=== PATIENT | male | born 1935 | race Caucasian/White ===

== ENCOUNTER 2018-08-12 10:34 | Inpatient (IN) | payer MEDICARE ==
[2018-08-12] MEDS ORDERED: METHYLPREDNISOLONE INJ 125 MG/2 ML SDV IV ONE (11:00)
[2018-08-12] MEDS ORDERED: IPRATROPIUM/ALBUTEROL 0.5-2.5 MG/3 ML AMPUL NEB ONE ×2 (11:00→16:24)
--- NOTE | 2018-08-12 11:06 | ER Document Report ---
ED Medical Screen (RME) - General Chief Complaint: Shortness Of Breath Stated Complaint: BREATHING ISSUES Time Seen by Provider: 08/12/18 10:58 Notes: Patient says he has chronic dyspnea and difficulty breathing, but it has worsened in the past week. Has had some cough with congestion and phlegm production. Aches in the front of his chest. He has ANORO inhaler and a rescue inhaler of albuterol. Does not have home nebs, oxygen, and is not on steroids. He has COPD, but has not smoked for about 7 years. Not running any fevers. O2 sat 92%. Air exchange somewhat tight and appears to be slightly short of breath. Few scattered wheezes bilaterally. TRAVEL OUTSIDE OF THE [place] IN LAST 30 DAYS: No - Related Data Allergies/Adverse Reactions: No Known Allergies Allergy (Unverified 08/12/18 10:36) Past Medical History - Social History Chew tobacco use (# tins/day): No Frequency of alcohol use: Occasional Drug Abuse: None Pulmonary Medical History: Reports: Hx COPD Renal/ Medical History: Denies: Hx Peritoneal Dialysis Past Surgical History: Reports: Hx Orthopedic Surgery - left arm, Hx Tonsillectomy Physical Exam - Vital signs Vitals: Temp Pulse Resp BP Pulse Ox 97.8 F 100 22 H 112/71 92 08/12/18 10:44 08/12/18 10:44 08/12/18 10:44 08/12/18 10:44 08/12/18 10:44 Course - Vital Signs Vital signs: Temp Pulse Resp BP Pulse Ox 97.8 F 100 22 H 112/71 92 08/12/18 10:44 08/12/18 10:44 08/12/18 10:44 08/12/18 10:44 08/12/18 10:44 Doctor's Discharge - Discharge Referrals: CHARMAINE MILLER MD [Primary Care Provider] - Follow up as needed
[2018-08-12] MEDS ORDERED: MAGNESIUM SULFATE/D5W 1 GM/100 ML RTUPB IV ONE (11:27)
--- NOTE | 2018-08-12 11:44 | RADIOLOGY REPORT (SQ) ---
EXAM DESCRIPTION: CHEST 2 VIEWS COMPLETED DATE/TIME: 08/12/2018 11:34 am REASON FOR STUDY: COPD with shortness of breath and difficulty breat COMPARISON: None. NUMBER OF VIEWS: Two view. TECHNIQUE: Frontal and lateral radiographic views of the chest acquired. LIMITATIONS: Overlapping breast tissue. FINDINGS: LUNGS AND PLEURA: No obvious pneumonia. No pleural effusion. Attenuated blood vessels and flattened javi-diaphragms. MEDIASTINUM AND HILAR STRUCTURES: No masses. No contour abnormalities. HEART AND VASCULAR STRUCTURES: Heart normal in size and contour. No evidence for failure. BONES: No acute findings. HARDWARE: None in the chest. OTHER: No other significant finding. IMPRESSION: COPD. NO ACUTE RADIOGRAPHIC FINDING IN THE CHEST. TECHNICAL DOCUMENTATION: JOB ID: [id number] [employer]- All Rights Reserved Reading location - IP/workstation name: [email or web address]
[2018-08-12] MEDS ORDERED: ALBUTEROL SULFATE 0.083% NEB 2.5 MG/3 ML AMPUL NEB ONE (12:37)
[2018-08-12 13:00] LABS: ABSOLUTE BASOPHILS # (AUTO) 0.1 10^3/uL (0.0-0.2); ABSOLUTE EOSINOPHILS # (AUTO) 0.2 10^3/uL (0.0-0.6); ABSOLUTE LYMPHOCYTES (AUTO) 2.4 10^3/uL (0.5-4.7); ABSOLUTE MONOCYTES (AUTO) 1.4 10^3/uL (0.1-1.4); ABSOLUTE NEUT (AUTO) 9.3 10^3/uL (1.7-8.2); BASOPHILS % (AUTO) 0.8 % (0-2); EOSINOPHILS % (AUTO) 1.4 % (0-6); HEMATOCRIT 45.6 % (37.9-51.0); HEMOGLOBIN 15.3 g/dL (13.5-17.0); LYMPHOCYTES % (AUTO) 18.2 % (13-45); MEAN CORPUSCULAR HEMOGLOBIN 29.4 pg (27.0-33.4); MEAN CORPUSCULAR HGB CONC 33.5 g/dL (32.0-36.0); MEAN CORPUSCULAR VOLUME 88 fl (80-97); MONOCYTES % (AUTO) 10.2 % (3-13); PLATELET COUNT 242 10^3/uL (150-450); RED BLOOD COUNT 5.19 10^6/uL (4.35-5.55); RED CELL DISTRIBUTION WIDTH 14.3 % (11.5-14.0); SEGMENTED NEUTROPHILS % (AUTO) 69.4 % (42-78); TOTAL CELLS COUNTED % (AUTO) 100 %; WHITE BLOOD COUNT 13.4 10^3/uL (4.0-10.5)
[2018-08-12] MEDS ORDERED: DOXYCYCLINE HYCLATE 100 MG TABLET PO ONE (13:35)
[2018-08-12 13:46] LABS: ALANINE AMINOTRANSFERASE 9 U/L (21-72); ALBUMIN 3.7 g/dL (3.5-5.0); ALKALINE PHOSPHATASE 79 U/L (38-126); ANION GAP 10 (5-19); ASPARTATE AMINO TRANSFERASE 20 U/L (17-59); BILIRUBIN,DIRECT 0.4 mg/dL (0.0-0.4); BILIRUBIN,TOTAL 0.6 mg/dL (0.2-1.3); BLOOD UREA NITROGEN 12 mg/dL (7-20); CALCIUM 8.8 mg/dL (8.4-10.2); CARBON DIOXIDE 26 mmol/L (22-30); CHLORIDE 100 mmol/L (98-107); GLUCOSE 179 mg/dL (75-110); POTASSIUM 4.5 mmol/L (3.6-5.0); SODIUM 135.9 mmol/L (137-145); TOTAL PROTEIN 6.9 g/dL (6.3-8.2)
[2018-08-12] MEDS ORDERED: NORMAL SALINE 500 ML IV ONE (14:00)
[2018-08-12] MEDS ORDERED: PREDNISONE 20 MG TABLET PO ONE (15:26)
[2018-08-12] MEDS ORDERED: ALBUTEROL SULFATE HFA (90 MCG/PUFF) 8 GM MDI (1 MDI/ER DISP) IH ONE (15:27)
--- NOTE | 2018-08-12 15:27 | ER Document Report ---
ED General - General Chief Complaint: Shortness Of Breath Stated Complaint: BREATHING ISSUES Time Seen by Provider: 08/12/18 10:58 TRAVEL OUTSIDE OF THE [place] IN LAST 30 DAYS: No - HPI Patient complains to provider of: Shortness of breath Notes: Patient visiting from [place] has a history of COPD coming in for shortness of breath. Patient states increased cough difficulty and breathing that is exacerbated with exertion is more patient states he was barely able to walk to his bathroom or walk a very short distance. Patient otherwise denies any pain denies any chest pain abdominal pain fever chills nausea vomiting diarrhea patient states scant yellow sputum production. Patient states he stopped smoking approximately 8 years ago. - Related Data Allergies/Adverse Reactions: No Known Allergies Allergy (Unverified 08/12/18 10:36) Past Medical History - Social History Smoking Status: Former Smoker Chew tobacco use (# tins/day): No Frequency of alcohol use: Occasional Drug Abuse: None Family History: Reviewed & Not Pertinent Patient has suicidal ideation: No Patient has homicidal ideation: No Pulmonary Medical History: Reports: Hx COPD Renal/ Medical History: Denies: Hx Peritoneal Dialysis Past Surgical History: Reports: Hx Orthopedic Surgery - left arm, Hx Tonsillectomy Review of Systems - Review of Systems Constitutional: No symptoms reported EENT: No symptoms reported Cardiovascular: No symptoms reported Respiratory: Cough, Short of breath, Sputum Gastrointestinal: No symptoms reported Genitourinary: No symptoms reported Male Genitourinary: No symptoms reported Musculoskeletal: No symptoms reported Skin: No symptoms reported Hematologic/Lymphatic: No symptoms reported Neurological/Psychological: No symptoms reported -: Yes All other systems reviewed and negative Physical Exam - Vital signs Vitals: Temp Pulse Resp BP Pulse Ox 97.8 F 100 22 H 112/71 92 08/12/18 10:44 08/12/18 10:44 08/12/18 10:44 08/12/18 10:44 08/12/18 10:44 Interpretation: Normal - General General appearance: Appears well, Alert - HEENT Head: Normocephalic, Atraumatic Eyes: Normal Pupils: PERRL - Respiratory Respiratory status: No respiratory distress Chest status: Nontender Breath sounds: Rhonchi, Wheezing Chest palpation: Normal - Cardiovascular Rhythm: Regular Heart sounds: Normal auscultation Murmur: No - Abdominal Inspection: Normal Distension: No distension Bowel sounds: Normal Tenderness: Nontender Organomegaly: No organomegaly - Back Back: Normal, Nontender - Extremities General upper extremity: Normal inspection, Nontender, Normal color, Normal ROM, Normal temperature General lower extremity: Normal inspection, Nontender, Normal color, Normal ROM, Normal temperature, Normal weight bearing. No: Noy's sign - Neurological Neuro grossly intact: Yes Cognition: Normal Orientation: AAOx4 Mallard Coma Scale Eye Opening: Spontaneous Crispin Coma Scale Verbal: Oriented Crispin Coma Scale Motor: Obeys Commands Mallard Coma Scale Total: 15 Speech: Normal Motor strength normal: LUE, RUE, LLE, RLE Sensory: Normal - Psychological Associated symptoms: Normal affect, Normal mood - Skin Skin Temperature: Warm Skin Moisture: Dry Skin Color: Normal Course - Re-evaluation Re-evalutation: 08/12/18 16:05 Patient monitored here in the ER. Patient had improvement of the symptoms after breathing treatment steroids. Patient was able to ambulate around the nurses station stating that he felt much better. Patient initial magnesium did return high which is anomalous reading this was repeated showing a magnesium of 2.3. Patient states feeling better states he feels good enough to be discharged home at this time. Patient will be given an albuterol inhaler steroids and doxycycline because of the productive sputum. Patient will be discharged home follow-up with his primary care physician return to ER symptoms worsen. Patient states understanding agrees with this plan - Vital Signs Vital signs: Temp Pulse Resp BP Pulse Ox 97.8 F 100 11 L 109/66 95 08/12/18 10:44 08/12/18 10:44 08/12/18 13:01 08/12/18 13:01 08/12/18 13:01 - Laboratory Result Diagrams: 08/12/18 12:30 08/12/18 13:10 Laboratory results interpreted by me: 08/12/18 08/12/18 08/12/18 12:30 13:10 14:30 WBC 13.4 H RDW 14.3 H Absolute Neutrophils 9.3 H Sodium 135.9 L Glucose 179 H Magnesium 5.1 H* 2.6 H D ALT 9 L Discharge - Discharge Clinical Impression: Bronchitis Condition: Good Disposition: HOME, SELF-CARE Instructions: Bronchitis With Bronchospasm (Wheezing) (OM) Additional Instructions: Your evaluation is consistent with a bronchitis. Please use the inhaler that we gave you here in ER 2 puffs every 4 hours for the next 5 days. Please take steroids as prescribed please take antibiotics as prescribed return to ER symptoms worsen please make sure you drink plenty of fluids to stay well-hydrated. Prescriptions: Doxycycline Hyclate 100 mg PO BID #20 capsule Prednisone [Deltasone 20 mg Tablet] 3 tab PO DAILY 5 Days tablet Referrals: CHARMAINE MILLER MD [EMERITUS] - Follow up as needed
[2018-08-12] MEDS ORDERED: ONDANSETRON HCL INJ/PF 4 MG/2 ML SDV IV PRN (16:43)
[2018-08-12] MEDS ORDERED: ACETAMINOPHEN 325 MG TABLET PO PRN (16:43)
[2018-08-12] MEDS ORDERED: LEVALBUTEROL HCL NEB 1.25 MG/3 ML AMPUL NEB PRN (16:43)
[2018-08-12] MEDS ORDERED: IPRATROPIUM/ALBUTEROL 0.5-2.5 MG/3 ML AMPUL NEB PRN (16:43)
[2018-08-12] MEDS ORDERED: ALBUTEROL SULFATE HFA (90 MCG/PUFF) 8 GM MDI (1 MDI/ER DISP) IH PRN (16:52)
[2018-08-12] MEDS ORDERED: ALBUTEROL SULFATE HFA (90 MCG/PUFF) 200 PUFF/8.5 GM MDI IH PRN (16:58)
--- NOTE | 2018-08-12 17:10 | PDOC H&P ---
History of Present Illness Admission Date/PCP: 08/12/2018 Patient complains of: Shortness of breath and wheezing History of Present Illness: PEPITO PURCELL is a 83 year old male with history of COPD not on home oxygen, prostate cancer and conservative management the emergency room with complaints of shortness of breath for the last 5 days. To the patient shortness of breath associated with wheezing started 5 days ago and symptoms are gradually getting worse today he has increasing difficulty in breathing associated with productive cough whitish yellow sputum and extensive wheezing, so he decided to came to the emergency room for further evaluation. Emergency room initially patient was treated with nebulizer treatments and ER physician decided to discharge him home but he the patient shortly become short of breath and pulse oxes are dropped to 87% on room air. So medical consult was called for admission. Went to talk to the patient patient has difficulty in completing the sentences. He is in moderate to severe distress. But he is able to give a detailed history of his problems. Past Medical History Pulmonary Medical History: Reports: Chronic Obstructive Pulmonary Disease (COPD) Malignancy Medical History: Reports: Other - Prostate cancer Past Surgical History Past Surgical History: Reports: Orthopedic Surgery - left arm, Tonsillectomy, Other - lt Wrist surgery Social History Smoking Status: Former Smoker Frequency of Alcohol Use: Occasional Hx Recreational Drug Use: No Family History Family History: Reviewed & Not Pertinent Family History: Sister with colon cancer. Brother has a history of stroke. Parental Family History Reviewed: Yes Children Family History Reviewed: Yes Sibling(s) Family History Reviewed.: Yes Medication/Allergy Home Medications: Albuterol Sulfate [Ventolin Hfa 8 gm Mdi (1 Mdi/ER Disp)] 1 puff IH Q4H PRN 08/12/18 Doxycycline Hyclate 100 mg PO BID #20 capsule 08/12/18 Prednisone [Deltasone 20 mg Tablet] 3 tab PO DAILY 5 Days tablet 08/12/18 Tamsulosin HCl [Flomax] 1 tab PO DAILY 08/12/18 Umeclidinium Brm/Vilanterol Tr [Anoro Ellipta 62.5-25 Mcg INH] 1 puff IH DAILY 08/12/18 Allergies/Adverse Reactions: No Known Allergies Allergy (Unverified 08/12/18 10:36) Review of Systems Constitutional: PRESENT: other - Complaint of on and off sweating. There is any fever and chills. Eyes: ABSENT: visual disturbances Ears: ABSENT: hearing changes Cardiovascular: ABSENT: chest pain, orthropnea Respiratory: PRESENT: cough, dyspnea, sputum, other - Wheezing. Gastrointestinal: ABSENT: abdominal pain, constipation, diarrhea, hematemesis, hematochezia, nausea, vomiting Neurological: ABSENT: abnormal gait, abnormal speech, confusion, dizziness, focal weakness, syncope Psychiatric: ABSENT: anxiety, depression, homidical ideation, suicidal ideation Physical Exam Vital Signs: Temp Pulse Resp BP Pulse Ox 97.8 F 100 21 H 100/79 88 L 08/12/18 10:44 08/12/18 10:44 08/12/18 16:14 08/12/18 16:14 08/12/18 16:14 Intake & Output 08/11/18 08/12/18 08/13/18 06:59 06:59 06:59 Intake Total 550 Balance 550 Weight 82.3 kg General appearance: PRESENT: other - In moderate distress. Head exam: PRESENT: atraumatic Eye exam: PRESENT: PERRLA Mouth exam: PRESENT: moist Neck exam: ABSENT: carotid bruit, JVD, lymphadenopathy, thyromegaly Respiratory exam: PRESENT: decreased breath sounds, prolonged expiratory phas, tachypnea, wheezes Cardiovascular exam: PRESENT: tachycardia GI/Abdominal exam: PRESENT: normal bowel sounds, soft. ABSENT: distended, guarding, mass, organolmegaly, rebound, tenderness Extremities exam: PRESENT: full ROM. ABSENT: calf tenderness, clubbing, pedal edema Neurological exam: PRESENT: alert, awake, oriented to person, oriented to place, oriented to time, oriented to situation, CN II-XII grossly intact. ABSENT: motor sensory deficit Results Laboratory Results: 08/12/18 12:30 08/12/18 13:10 08/12/18 08/12/18 08/12/18 12:30 12:30 13:10 WBC 13.4 H RBC 5.19 Hgb 15.3 Hct 45.6 MCV 88 MCH 29.4 MCHC 33.5 RDW 14.3 H Plt Count 242 Seg Neutrophils % 69.4 Lymphocytes % 18.2 Monocytes % 10.2 Eosinophils % 1.4 Basophils % 0.8 Absolute Neutrophils 9.3 H Absolute Lymphocytes 2.4 Absolute Monocytes 1.4 Absolute Eosinophils 0.2 Absolute Basophils 0.1 Sodium Cancelled 135.9 L Potassium Cancelled 4.5 Chloride Cancelled 100 Carbon Dioxide Cancelled 26 Anion Gap Cancelled 10 BUN Cancelled 12 Creatinine Cancelled 1.03 Est GFR ( Amer) Cancelled > 60 Est GFR (Non-Af Amer) Cancelled > 60 Glucose Cancelled 179 H Calcium Cancelled 8.8 Magnesium Cancelled 5.1 H* Total Bilirubin Cancelled 0.6 AST Cancelled 20 ALT Cancelled 9 L Alkaline Phosphatase Cancelled 79 Total Protein Cancelled 6.9 Albumin Cancelled 3.7 08/12/18 14:30 WBC RBC Hgb Hct MCV MCH MCHC RDW Plt Count Seg Neutrophils % Lymphocytes % Monocytes % Eosinophils % Basophils % Absolute Neutrophils Absolute Lymphocytes Absolute Monocytes Absolute Eosinophils Absolute Basophils Sodium Potassium Chloride Carbon Dioxide Anion Gap BUN Creatinine Est GFR ( Amer) Est GFR (Non-Af Amer) Glucose Calcium Magnesium 2.6 H D Total Bilirubin AST ALT Alkaline Phosphatase Total Protein Albumin 08/12/18 08/12/18 12:30 13:10 Troponin I Cancelled 0.025 Impressions: Chest X-Ray 08/12/18 10:59 IMPRESSION: COPD. NO ACUTE RADIOGRAPHIC FINDING IN THE CHEST. Assessment & Plan - Diagnosis (1) COPD exacerbation Is this a current diagnosis for this admission?: Yes Plan: 08/12/2018 plan today is to put him in telemetry as an inpatient. Started on IV Solu-Medrol 40 mg every 8 hourly, oxygen 2 L via nasal cannula, BiPAP as needed, Xopenex nebulizations, ipratropium nebulizations, flutter valve therapy. Started on prophylactic antibiotic therapy with Rocephin 1 g IV daily Zithromax 500 mg IV daily. Blood cultures and sputum cultures are requested. (2) Bronchitis Is this a current diagnosis for this admission?: Yes Plan: 08/12/2018 blood cultures and sputum cultures are requested. Started on IV Rocephin 1 g daily and Zithromax 500 mg IV daily. (3) Prostate cancer Is this a current diagnosis for this admission?: Yes Plan: 08/12/2018 patient has history of prostate cancer. According to him he is a conservative management. Never been on radiation or chemotherapy. - Time Time Spent: 50 to 70 Minutes Smoking Cessation Education: 3 to 10 minutes Medications reviewed and adjusted accordingly: Yes Anticipated discharge: Home
[2018-08-12 19:09] LABS: ARTERIAL BLOOD BASE EXCESS -4.5 mmol/L; ARTERIAL BLOOD H2CO3 0.75 mmol/L (1.05-1.35); ARTERIAL BLOOD HCO3 17.4 mmol/L (20-24); ARTERIAL BLOOD O2 SATURATION 95.2 % (94-98); ARTERIAL BLOOD PH 7.46 (7.35-7.45); ARTERIAL BLOOD PO2 69.6 mmHg (80-100); ARTERIAL BLOOD TOTAL CO2 18.2 mmol/L (23-27)
[2018-08-12 19:14] LABS: ARTERIAL BLOOD FIO2 ROOM AIR
[2018-08-12] MEDS: AZITHROMYCIN 500 MG in DEXTROSE 5%-WATER 250 ML IV SCH (19:52)
[2018-08-12] MEDS: CEFTRIAXONE SODIUM 1,000 MG in DEXTROSE 5%-WATER 50 ML IV SCH (23:55)
[2018-08-13 00:01] LABS: URINE METHADONE SCREEN NEGATIVE
[2018-08-13] MEDS: PANTOPRAZOLE SODIUM 40 MG VIAL IV SCH ×3 (00:04→21:41)
[2018-08-13] MEDS: METHYLPREDNISOLONE INJ 40 MG/1 ML SDV IV SCH ×4 (00:05→21:40)
[2018-08-13 00:53] LABS: URINE BARBITURATES SCREEN NEGATIVE; URINE COCAINE SCREEN NEGATIVE; URINE MARIJUANA (THC) SCREEN NEGATIVE; URINE PHENCYCLIDINE SCREEN NEGATIVE
[2018-08-13 00:55] LABS: URINE AMPHETAMINES SCREEN NEGATIVE; URINE BENZODIAZEPINES SCREEN NEGATIVE
[2018-08-13 07:48] LABS: ABSOLUTE MONOCYTES (AUTO) 0.3 10^3/uL (0.1-1.4); ABSOLUTE NEUT (AUTO) 12.4 10^3/uL (1.7-8.2); BASOPHILS % (AUTO) 0.2 % (0-2); MEAN CORPUSCULAR HEMOGLOBIN 29.3 pg (27.0-33.4); MEAN CORPUSCULAR HGB CONC 33.8 g/dL (32.0-36.0); MEAN CORPUSCULAR VOLUME 87 fl (80-97); MONOCYTES % (AUTO) 2.3 % (3-13); PLATELET COUNT 243 10^3/uL (150-450); RED CELL DISTRIBUTION WIDTH 14.2 % (11.5-14.0); SEGMENTED NEUTROPHILS % (AUTO) 90.5 % (42-78); TOTAL CELLS COUNTED % (AUTO) 100 %; WHITE BLOOD COUNT 13.7 10^3/uL (4.0-10.5)
[2018-08-13 07:51] LABS: HEMOGLOBIN 13.2 g/dL (13.5-17.0)
[2018-08-13 07:52] LABS: ALANINE AMINOTRANSFERASE 9 U/L (21-72); ALBUMIN 3.3 g/dL (3.5-5.0); ALKALINE PHOSPHATASE 64 U/L (38-126); ANION GAP 9 (5-19); ASPARTATE AMINO TRANSFERASE 13 U/L (17-59); BILIRUBIN,DIRECT 0.2 mg/dL (0.0-0.4); BILIRUBIN,TOTAL 0.3 mg/dL (0.2-1.3); BLOOD UREA NITROGEN 23 mg/dL (7-20); CALCIUM 8.6 mg/dL (8.4-10.2); CARBON DIOXIDE 24 mmol/L (22-30); CHLORIDE 104 mmol/L (98-107); CHOLESTEROL 172.22 mg/dL (0-200); GLUCOSE 142 mg/dL (75-110); SODIUM 137.4 mmol/L (137-145); TOTAL PROTEIN 6.1 g/dL (6.3-8.2); TRIGLYCERIDES 75 mg/dL (<150)
[2018-08-13 08:03] LABS: DIRECT LDL 135 mg/dL (<100)
[2018-08-13] MEDS ORDERED: AZITHROMYCIN INJ 500 MG VIAL IV SCH (10:00)
[2018-08-13] MEDS ORDERED: CEFTRIAXONE 1 GM/D5W RTU 1 GM/50 ML RTUPB IV SCH (10:00)
[2018-08-13] MEDS ORDERED: (PENDING PHARMACY ID) (Umeclidinium Brm/Vilanterol Tr [Anoro Ellipta 62.5-25 Mcg Inh] 1 PU IH SCH (10:00)
[2018-08-13] MEDS: ENOXAPARIN SODIUM INJ 40 MG/0.4 ML DISP.SYRIN SUBCUT SCH (10:32)
[2018-08-13] MEDS: TAMSULOSIN HCL 0.4 MG CAP.SR.24H PO SCH (10:32)
--- NOTE | 2018-08-13 13:39 | PDOC PROGRESS REPORT ---
Subjective Progress Note for:: 08/13/18 Subjective:: 08/13-no acute events in the last 24 hours. Patient is afebrile. He is complaining of shortness of breath with minimal activity like walking to the restroom on changing his close. Once he sits back in the bed his breathing is improving as per the patient. Reason For Visit: COPD EXACERBATION Physical Exam Vital Signs: Temp Pulse Resp BP Pulse Ox 98.2 F 79 18 109/58 L 91 L 08/13/18 11:23 08/13/18 11:23 08/13/18 11:23 08/13/18 11:23 08/13/18 11:23 Intake & Output 08/12/18 08/13/18 08/14/18 06:59 06:59 06:59 Intake Total 850 Balance 850 Weight 80 kg General appearance: PRESENT: no acute distress Head exam: PRESENT: atraumatic Eye exam: PRESENT: PERRLA Mouth exam: PRESENT: moist Neck exam: ABSENT: carotid bruit, JVD, lymphadenopathy, thyromegaly Respiratory exam: PRESENT: decreased breath sounds, wheezes Cardiovascular exam: PRESENT: RRR. ABSENT: diastolic murmur, rubs, systolic murmur GI/Abdominal exam: PRESENT: normal bowel sounds, soft. ABSENT: distended, guarding, mass, organolmegaly, rebound, tenderness Neurological exam: PRESENT: alert, awake, oriented to person, oriented to place, oriented to time, oriented to situation, CN II-XII grossly intact. ABSENT: motor sensory deficit Psychiatric exam: PRESENT: appropriate affect, normal mood. ABSENT: homicidal ideation, suicidal ideation Results Laboratory Results: 08/13/18 06:45 08/13/18 06:45 08/12/18 08/12/18 08/12/18 13:10 14:30 18:43 WBC RBC Hgb Hct MCV MCH MCHC RDW Plt Count Seg Neutrophils % Lymphocytes % Monocytes % Eosinophils % Basophils % Absolute Neutrophils Absolute Lymphocytes Absolute Monocytes Absolute Eosinophils Absolute Basophils Carbonic Acid 0.75 L HCO3/H2CO3 Ratio 23:1 ABG pH 7.46 H ABG pCO2 25.0 L ABG pO2 69.6 L ABG HCO3 17.4 L ABG O2 Saturation 95.2 ABG Base Excess -4.5 FiO2 ROOM AIR Sodium 135.9 L Potassium 4.5 Chloride 100 Carbon Dioxide 26 Anion Gap 10 BUN 12 Creatinine 1.03 Est GFR ( Amer) > 60 Est GFR (Non-Af Amer) > 60 Glucose 179 H Calcium 8.8 Magnesium 5.1 H* 2.6 H D Total Bilirubin 0.6 AST 20 ALT 9 L Alkaline Phosphatase 79 Total Protein 6.9 Albumin 3.7 Triglycerides Cholesterol LDL Cholesterol Direct VLDL Cholesterol HDL Cholesterol 08/13/18 08/13/18 06:45 06:45 WBC 13.7 H RBC 4.50 Hgb 13.2 L D Hct 39.0 MCV 87 MCH 29.3 MCHC 33.8 RDW 14.2 H Plt Count 243 Seg Neutrophils % 90.5 H Lymphocytes % 7.0 L Monocytes % 2.3 L Eosinophils % 0.0 Basophils % 0.2 Absolute Neutrophils 12.4 H Absolute Lymphocytes 1.0 Absolute Monocytes 0.3 Absolute Eosinophils 0.0 Absolute Basophils 0.0 Carbonic Acid HCO3/H2CO3 Ratio ABG pH ABG pCO2 ABG pO2 ABG HCO3 ABG O2 Saturation ABG Base Excess FiO2 Sodium 137.4 Potassium 5.0 Chloride 104 Carbon Dioxide 24 Anion Gap 9 BUN 23 H Creatinine 1.08 Est GFR ( Amer) > 60 Est GFR (Non-Af Amer) > 60 Glucose 142 H Calcium 8.6 Magnesium 2.6 H Total Bilirubin 0.3 AST 13 L ALT 9 L Alkaline Phosphatase 64 Total Protein 6.1 L Albumin 3.3 L Triglycerides 75 Cholesterol 172.22 LDL Cholesterol Direct 135 H VLDL Cholesterol 15.0 HDL Cholesterol 34 L 08/12/18 08/12/18 08/12/18 12:30 13:10 18:30 Troponin I Cancelled 0.025 0.018 08/13/18 08/13/18 00:35 06:45 Troponin I 0.013 0.013 Impressions: Chest X-Ray 08/12/18 10:59 IMPRESSION: COPD. NO ACUTE RADIOGRAPHIC FINDING IN THE CHEST. Assessment & Plan - Diagnosis (1) COPD exacerbation Is this a current diagnosis for this admission?: Yes Plan: 08/12/2018 plan today is to put him in telemetry as an inpatient. Started on IV Solu-Medrol 40 mg every 8 hourly, oxygen 2 L via nasal cannula, BiPAP as needed, Xopenex nebulizations, ipratropium nebulizations, flutter valve therapy. Started on prophylactic antibiotic therapy with Rocephin 1 g IV daily Zithromax 500 mg IV daily. Blood cultures and sputum cultures are requested. 08/13/2018 patient is on 1.5 L nasal cannula pulse ox is 91%. Patient is getting regular scheduled nebulizations, is on IV antibiotic therapy. Blood cultures are pending and sputum cultures pending. Plan is to continue the present management. Is also on IV Solu-Medrol. (2) Bronchitis Is this a current diagnosis for this admission?: Yes Plan: 08/12/2018 blood cultures and sputum cultures are requested. Started on IV Rocephin 1 g daily and Zithromax 500 mg IV daily. 08/13/2018-patient is afebrile temperature today is 98.2 he is on IV Rocephin 1 g daily and Zithromax 40 mg IV daily plan is to continue the present management. (3) Prostate cancer Is this a current diagnosis for this admission?: Yes Plan: 08/12/2018 patient has history of prostate cancer. According to him he is a conservative management. Never been on radiation or chemotherapy. 08/13/2018 patient has history of prostate cancer on conservative management. Plan is to continue the present management. - Time Time Spent with patient: 15-24 minutes Smoking Cessation Education: 3 to 10 minutes Medications reviewed and adjusted accordingly: Yes Anticipated discharge: Home
--- NOTE | 2018-08-13 14:52 | EKG REPORT ---
SEVERITY:- OTHERWISE NORMAL ECG - SINUS RHYTHM LEFT AXIS DEVIATION : Confirmed by: Ramon Lim 13-Aug-2018 14:52:29
--- NOTE | 2018-08-13 14:52 | EKG REPORT ---
SEVERITY:- BORDERLINE ECG - SINUS RHYTHM LEFT AXIS DEVIATION BORDERLINE T ABNORMALITIES, ANTERIOR LEADS : Confirmed by: Ramon Lim 13-Aug-2018 14:52:23
[2018-08-13] MEDS: AZITHROMYCIN 500 MG in DEXTROSE 5%-WATER 250 ML IV SCH (17:04)
[2018-08-13] MEDS: CEFTRIAXONE SODIUM 1,000 MG in DEXTROSE 5%-WATER 50 ML IV SCH (21:40)
[2018-08-14] MEDS: METHYLPREDNISOLONE INJ 40 MG/1 ML SDV IV SCH ×2 (05:30→21:23)
[2018-08-14 08:17] LABS: HEMATOCRIT 37.3 % (37.9-51.0); HEMOGLOBIN 12.7 g/dL (13.5-17.0); MEAN CORPUSCULAR HEMOGLOBIN 29.5 pg (27.0-33.4); MEAN CORPUSCULAR HGB CONC 34.1 g/dL (32.0-36.0); MEAN CORPUSCULAR VOLUME 86 fl (80-97); PLATELET COUNT 265 10^3/uL (150-450); RED BLOOD COUNT 4.32 10^6/uL (4.35-5.55); RED CELL DISTRIBUTION WIDTH 14.2 % (11.5-14.0); WHITE BLOOD COUNT 23.1 10^3/uL (4.0-10.5)
[2018-08-14 09:07] LABS: ABSOLUTE LYMPHOCYTES# (MANUAL) 3.9 10^3/uL (0.5-4.7); ABSOLUTE MONOCYTES # (MANUAL) 0.9 10^3/uL (0.1-1.4); ABSOLUTE NEUTROPHILS# (MANUAL) 18.2 10^3/uL (1.7-8.2); BASOPHILS % (MANUAL) 0 % (0-2); EOSINOPHILS % (MANUAL) 0 % (0-6); LYMPHOCYTES % (MANUAL) 17 % (13-45); MONOCYTES % (MANUAL) 4 % (3-13); SEGMENTED NEUTROPHILS % (MAN) 79 % (42-78); TOTAL CELLS COUNTED 100
[2018-08-14 09:08] LABS: PLATELET CLUMPS PRESENT; PLATELET COMMENT ADEQUATE
[2018-08-14] MEDS: ENOXAPARIN SODIUM INJ 40 MG/0.4 ML DISP.SYRIN SUBCUT SCH (10:15)
[2018-08-14] MEDS: TAMSULOSIN HCL 0.4 MG CAP.SR.24H PO SCH (10:15)
[2018-08-14] MEDS: PANTOPRAZOLE SODIUM 40 MG VIAL IV SCH (10:15)
--- NOTE | 2018-08-14 12:27 | PDOC PROGRESS REPORT ---
Subjective Progress Note for:: 08/14/18 Subjective:: 08/13-no acute events in the last 24 hours. Patient is afebrile. He is complaining of shortness of breath with minimal activity like walking to the restroom on changing his close. Once he sits back in the bed his breathing is improving as per the patient. 08/14/2018 no acute events in the last 24 hours. Patient is afebrile. Patient is still having the mild shortness of breath with minimal activity. But much improved. Pulse ox is 93% on 1 L oxygen. Reason For Visit: COPD EXACERBATION Physical Exam Vital Signs: Temp Pulse Resp BP Pulse Ox 97.4 F 86 19 146/62 H 93 08/14/18 08:04 08/14/18 08:04 08/14/18 08:04 08/14/18 08:04 08/14/18 08:04 Intake & Output 08/13/18 08/14/18 08/15/18 06:59 06:59 06:59 Intake Total 850 2122 Balance 850 2122 Weight 80 kg 82.2 kg General appearance: PRESENT: no acute distress Head exam: PRESENT: atraumatic Eye exam: PRESENT: PERRLA Mouth exam: PRESENT: moist Neck exam: ABSENT: carotid bruit, JVD, lymphadenopathy, thyromegaly Respiratory exam: PRESENT: decreased breath sounds, wheezes Cardiovascular exam: PRESENT: tachycardia GI/Abdominal exam: PRESENT: normal bowel sounds, soft. ABSENT: distended, guarding, mass, organolmegaly, rebound, tenderness Extremities exam: PRESENT: full ROM. ABSENT: calf tenderness, clubbing, pedal edema Neurological exam: PRESENT: alert, awake, oriented to person, oriented to place, oriented to time, oriented to situation, CN II-XII grossly intact. ABSENT: motor sensory deficit Psychiatric exam: PRESENT: appropriate affect, normal mood. ABSENT: homicidal ideation, suicidal ideation Results Laboratory Results: 08/14/18 07:25 08/13/18 06:45 08/14/18 08/14/18 08/14/18 04:07 04:07 07:25 WBC Cancelled RBC Cancelled Hgb Cancelled Hct Cancelled MCV Cancelled MCH Cancelled MCHC Cancelled RDW Cancelled Plt Count Cancelled Seg Neutrophils % Cancelled Lymphocytes % Cancelled Monocytes % Cancelled Eosinophils % Cancelled Basophils % Cancelled Absolute Neutrophils Cancelled Absolute Lymphocytes Cancelled Absolute Monocytes Cancelled Absolute Eosinophils Cancelled Absolute Basophils Cancelled Magnesium Cancelled 2.5 H 08/14/18 07:25 WBC 23.1 H RBC 4.32 L Hgb 12.7 L Hct 37.3 L MCV 86 MCH 29.5 MCHC 34.1 RDW 14.2 H Plt Count 265 Seg Neutrophils % Not Reportable Lymphocytes % Not Reportable Monocytes % Not Reportable Eosinophils % Not Reportable Basophils % Not Reportable Absolute Neutrophils Not Reportable Absolute Lymphocytes Not Reportable Absolute Monocytes Not Reportable Absolute Eosinophils Not Reportable Absolute Basophils Not Reportable Magnesium 08/12/18 08/12/18 08/12/18 12:30 13:10 18:30 Troponin I Cancelled 0.025 0.018 08/13/18 08/13/18 00:35 06:45 Troponin I 0.013 0.013 Impressions: Chest X-Ray 08/12/18 10:59 IMPRESSION: COPD. NO ACUTE RADIOGRAPHIC FINDING IN THE CHEST. Assessment & Plan - Diagnosis (1) COPD exacerbation Is this a current diagnosis for this admission?: Yes Plan: 08/12/2018 plan today is to put him in telemetry as an inpatient. Started on IV Solu-Medrol 40 mg every 8 hourly, oxygen 2 L via nasal cannula, BiPAP as needed, Xopenex nebulizations, ipratropium nebulizations, flutter valve therapy. Started on prophylactic antibiotic therapy with Rocephin 1 g IV daily Zithromax 500 mg IV daily. Blood cultures and sputum cultures are requested. 08/13/2018 patient is on 1.5 L nasal cannula pulse ox is 91%. Patient is getting regular scheduled nebulizations, is on IV antibiotic therapy. Blood cultures are pending and sputum cultures pending. Plan is to continue the present management. Is also on IV Solu-Medrol. 08/14/2018-pulse ox is 93% on 1 L. Patient is on IV Solu-Medrol 40 mg every 12 hours. Blood cultures sputum cultures negative so far. He is getting regular scheduled nebulizations. He is getting better. (2) Bronchitis Is this a current diagnosis for this admission?: Yes Plan: 08/12/2018 blood cultures and sputum cultures are requested. Started on IV Rocephin 1 g daily and Zithromax 500 mg IV daily. 08/13/2018-patient is afebrile temperature today is 98.2 he is on IV Rocephin 1 g daily and Zithromax 500 mg IV daily plan is to continue the present management. 08/14/2018-patient's temperature is 97.4. He is on Rocephin 1 g IV daily Zithromax 500 mg IV daily. Cultures are negative so far. Plan is to continue the present management. (3) Prostate cancer Is this a current diagnosis for this admission?: Yes - Time Time Spent with patient: 15-24 minutes Medications reviewed and adjusted accordingly: Yes Anticipated discharge: Home
[2018-08-14] MEDS: AZITHROMYCIN 500 MG in DEXTROSE 5%-WATER 250 ML IV SCH (17:31)
[2018-08-14] MEDS: FAMOTIDINE 20 MG TABLET PO SCH (21:23)
[2018-08-14] MEDS: CEFTRIAXONE SODIUM 1,000 MG in DEXTROSE 5%-WATER 50 ML IV SCH (21:23)
[2018-08-15 06:02] LABS: ABSOLUTE MONOCYTES (AUTO) 0.6 10^3/uL (0.1-1.4); ABSOLUTE NEUT (AUTO) 15.9 10^3/uL (1.7-8.2); BASOPHILS % (AUTO) 0.3 % (0-2); HEMATOCRIT 38.1 % (37.9-51.0); HEMOGLOBIN 12.7 g/dL (13.5-17.0); LYMPHOCYTES % (AUTO) 5.9 % (13-45); MEAN CORPUSCULAR HEMOGLOBIN 28.9 pg (27.0-33.4); MEAN CORPUSCULAR HGB CONC 33.3 g/dL (32.0-36.0); MEAN CORPUSCULAR VOLUME 87 fl (80-97); MONOCYTES % (AUTO) 3.6 % (3-13); PLATELET COUNT 273 10^3/uL (150-450); RED BLOOD COUNT 4.39 10^6/uL (4.35-5.55); RED CELL DISTRIBUTION WIDTH 14.3 % (11.5-14.0); SEGMENTED NEUTROPHILS % (AUTO) 90.2 % (42-78); TOTAL CELLS COUNTED % (AUTO) 100 %; WHITE BLOOD COUNT 17.6 10^3/uL (4.0-10.5)
[2018-08-15] MEDS: TAMSULOSIN HCL 0.4 MG CAP.SR.24H PO SCH (10:10)
[2018-08-15] MEDS: FAMOTIDINE 20 MG TABLET PO SCH (10:10)
[2018-08-15] MEDS: METHYLPREDNISOLONE INJ 40 MG/1 ML SDV IV SCH (10:10)
[2018-08-15] MEDS: ENOXAPARIN SODIUM INJ 40 MG/0.4 ML DISP.SYRIN SUBCUT SCH (10:10)
[2018-08-15 11:20] VITALS: BP 122/64
[2018-08-15] MEDS ORDERED: LEVOFLOXACIN 500 MG TABLET PO SCH (12:00)
--- NOTE | 2018-08-15 15:40 | PDOC DISCHARGE SUMMARY ---
General - Admit/Disc Date/PCP Admission Date/Primary Care Provider: 08/12/18 17:04 Discharge Date: 08/15/18 - Discharge Diagnosis (1) COPD exacerbation Is this a current diagnosis for this admission?: Yes Summary: 08/12/2018 plan today is to put him in telemetry as an inpatient. Started on IV Solu-Medrol 40 mg every 8 hourly, oxygen 2 L via nasal cannula, BiPAP as needed, Xopenex nebulizations, ipratropium nebulizations, flutter valve therapy. Started on prophylactic antibiotic therapy with Rocephin 1 g IV daily Zithromax 500 mg IV daily. Blood cultures and sputum cultures are requested. 08/13/2018 patient is on 1.5 L nasal cannula pulse ox is 91%. Patient is getting regular scheduled nebulizations, is on IV antibiotic therapy. Blood cultures are pending and sputum cultures pending. Plan is to continue the present management. Is also on IV Solu-Medrol. 08/14/2018-pulse ox is 93% on 1 L. Patient is on IV Solu-Medrol 40 mg every 12 hours. Blood cultures sputum cultures negative so far. He is getting regular scheduled nebulizations. He is getting better. 08/15/2018-patient pulse ox on 2 L is 96% pulse ox are persistently stable even with activity. It does not meet the criteria for home oxygen. COPD exacerbation resolved. (2) Bronchitis Is this a current diagnosis for this admission?: Yes Summary: 08/12/2018 blood cultures and sputum cultures are requested. Started on IV Yoan ephin 1 g daily and Zithromax 500 mg IV daily. 08/13/2018-patient is afebrile temperature today is 98.2 he is on IV Rocephin 1 g daily and Zithromax 500 mg IV daily plan is to continue the present m anagement. 08/14/2018-patient's temperature is 97.4. He is on Rocephin 1 g IV daily Zithromax 500 mg IV daily. Cultures are negative so far. Plan is to continue the present management. 08/15/2018-patient T-max is 97.3. Afebrile. Vital signs are stable. He was treated with IV Rocephin 1 g daily, Zithromax 40 mg p.o. daily. He is going home on levofloxacin 500 mg p.o. daily for 1 week. (3) Prostate cancer Is this a current diagnosis for this admission?: Yes Summary: She has history of prostate cancer. Stable.08/12/2018 patient has history of prostate cancer. According to him he is a conservative management. Never been on radiation or chemotherapy. - Additional Information Resuscitation Status: Full Code Discharge Diet: Cardiac Discharge Activity: Activity As Tolerated Prescriptions: Levofloxacin [Levaquin 500 mg Tablet] 500 mg PO DAILY #7 tablet Prednisone [Deltasone 10 mg Tablet] 10 mg PO BID #10 tablet Home Medications: Albuterol Sulfate [Ventolin Hfa 8 gm Mdi (1 Mdi/ER Disp)] 1 puff IH Q4H PRN 08/12/18 Tamsulosin HCl [Flomax] 0.4 mg PO DAILY 08/12/18 Umeclidinium Brm/Vilanterol Tr [Anoro Ellipta 62.5-25 Mcg INH] 1 puff IH DAILY 08/12/18 Levofloxacin [Levaquin 500 mg Tablet] 500 mg PO DAILY #7 tablet 08/15/18 Prednisone [Deltasone 10 mg Tablet] 10 mg PO BID #10 tablet 08/15/18 History of Present Illness History of Present Illness: PEPITO PURCELL is a 83 year old male with history of COPD not on home oxygen, prostate cancer and conservative management the emergency room with complaints of shortness of breath for the last 5 days. To the patient shortness of breath associated with wheezing started 5 days ago and symptoms are gradually getting worse today he has increasing difficulty in breathing associated with productive cough whitish yellow sputum and extensive wheezing, so he decided to came to the emergency room for further evaluation. Emergency room initially patient was treated with nebulizer treatments and ER physician decided to discharge him home but he the patient shortly become short of breath and pulse oxes are dropped to 87% on room air. So medical consult was called for admission. Went to talk to the patient patient has difficulty in completing the sentences. He is in m oderate to severe distress. But he is able to give a detailed history of his problems. Physical Exam Vital Signs: Temp Pulse Resp BP Pulse Ox 97.3 F 73 22 H 122/64 96 08/15/18 11:17 08/15/18 11:17 08/15/18 11:17 08/15/18 11:17 08/15/18 11:17 Intake & Output 08/14/18 08/15/18 08/16/18 06:59 06:59 06:59 Intake Total 2122 1600 480 Balance 2122 1600 480 Weight 82.2 kg 82.6 kg General appearance: PRESENT: mild distress Eye exam: PRESENT: PERRLA Mouth exam: PRESENT: moist Neck exam: ABSENT: carotid bruit, JVD, lymphadenopathy, thyromegaly Respiratory exam: PRESENT: clear to auscultation rivera. ABSENT: rales, rhonchi, wheezes Cardiovascular exam: PRESENT: RRR. ABSENT: diastolic murmur, rubs, systolic murmur GI/Abdominal exam: PRESENT: normal bowel sounds, soft. ABSENT: distended, guarding, mass, organolmegaly, rebound, tenderness Neurological exam: PRESENT: alert, awake, oriented to person, oriented to place, oriented to time, oriented to situation, CN II-XII grossly intact. ABSENT: motor sensory deficit Psychiatric exam: PRESENT: appropriate affect, normal mood. ABSENT: homicidal ideation, suicidal ideation Results Laboratory Results: 08/15/18 05:20 08/13/18 06:45 08/15/18 08/15/18 05:20 05:20 WBC 17.6 H RBC 4.39 Hgb 12.7 L Hct 38.1 MCV 87 MCH 28.9 MCHC 33.3 RDW 14.3 H Plt Count 273 Seg Neutrophils % 90.2 H Lymphocytes % 5.9 L Monocytes % 3.6 Eosinophils % 0.0 Basophils % 0.3 Absolute Neutrophils 15.9 H Absolute Lymphocytes 1.0 Absolute Monocytes 0.6 Absolute Eosinophils 0.0 Absolute Basophils 0.0 Magnesium 2.5 H 08/12/18 08/12/18 08/12/18 12:30 13:10 18:30 Troponin I Cancelled 0.025 0.018 08/13/18 08/13/18 00:35 06:45 Troponin I 0.013 0.013 Impressions: Chest X-Ray 08/12/18 10:59 IMPRESSION: COPD. NO ACUTE RADIOGRAPHIC FINDING IN THE CHEST. Qualifiers - * PATIENT BEING DISCHARGED WITH ANY OF THE FOLLOWING DIAGNOSIS: No VTE patient discharged on overlapping Therapy?: Yes
[2018-08-15] MEDS ORDERED: PREDNISONE 10 MG TABLET PO SCH (18:00)
== END 2018-08-15 12:45 | disposition home or self-care (01) | DRG 192 ==
LOC: ER 10:34 → EH 17:04 → OBSVTOIN 17:04 → 4N 20:17
PROVIDERS: ADMIT Internal Medicine; ATTEND Internal Medicine
PROC: 5A09357 Assistance with Respiratory Ventilation, Less than 24 Consecutive Hours, Continuous Positive Airway Pressure (ICD-10-PCS; principal; 2018-08-12)
PROC: 3E0F73Z Introduction of Anti-inflammatory into Respiratory Tract, Via Natural or Artificial Opening (ICD-10-PCS; 2018-08-12)
DX: J44.1 Chronic obstructive pulmonary disease with (acute) exacerbation (principal); Z85.46 Personal history of malignant neoplasm of prostate; Z79.899 Other long term (current) drug therapy; Z87.891 Personal history of nicotine dependence; Z80.0 Family history of malignant neoplasm of digestive organs; Z82.3 Family history of stroke
CPT/HCPCS: 36415; 71046; 80053; 80061; 80307; 82803; 83735; 84484; 85025; 87040; 87070; 87205; 93005; 93010; 94640; 94667; 94668; 96365; 96375; 99285; J0456; J0696; J1650; J2920; J2930; J3475; J3490; J7040; J7060; J7512; J7620; S0164